=== PATIENT | female | born 1975 | race Caucasian/White ===

== ENCOUNTER 2016-11-06 12:59 | Emergency (ER) | payer OTHER ==
[~2016-11-06] VITALS: Ht 162.6 cm; Wt 86.2 kg
--- NOTE | 2016-11-06 13:10 | NUR ---
pt to er bed 08. BILATERAL KNEE ABRASIONS AND R HAND/WRIST PAIN S/P GLF WHILE HIKING. A/A/O. SIDE RAILS UP. HOB ELEVATED. CONNECTED TO MONITOR. WOUND CARE AT BEDSIDE. CHANGED TO GOWN. VS WNL.
[2016-11-06] MEDS ORDERED: oxyCODONE/APAP (5/325 MG) 1 UDTAB TABLET PO ONE (13:30)
[2016-11-06] MEDS ORDERED: oxyCODONE/APAP (5/325 MG) 1 UDTAB TABLET ONE (13:32)
[2016-11-06 15:47] VITALS: BP 105/62
== END 2016-11-06 15:48 | disposition home or self-care (01) ==
LOC: ER 13:01
DX: S81.012A Laceration without foreign body, left knee, initial encounter (principal); S81.011A Laceration without foreign body, right knee, initial encounter; S92.251A Displaced fracture of navicular [scaphoid] of right foot, initial encounter for closed fracture; W01.0XXA Fall on same level from slipping, tripping and stumbling without subsequent striking against object, initial encounter; Y93.89 Activity, other specified; Y92.89 Other specified places as the place of occurrence of the external cause; Y99.8 Other external cause status
CPT/HCPCS: 12002; 73110; 73564; 99284; A4606; A6402 ×2; A6403 ×2; Z7610